=== PATIENT | female | born 1950 | race Caucasian/White ===

== ENCOUNTER → 2017-01-17 | Outpatient (CLI) | payer OTHER ==
[~2017-01-17] MED LIST: ANTIVERT25 M1 PO; ASPIR 8181 MG PO; ATROVASTATIN PO; COUMADIN 5 MG TA5 M1 PO; ESTRACE1 MG PO; FISH OIL 500 M1 EACH PO; GLUCOSAMINE HC500 MG PO; IBUPROFEN 200200 M1 PO; LEVOTHYROXIN0.075 MG PO; LISINOPRIL10 MG PO; LISINOPRIL5 MG PO; MULTIVITAMINS PO; OMEGA-3 + VITA1 EAC2 PO; PERCOCET 10-321 EACH PO; PERCOCET PO; SEE INSTRUCTIONS; VALIUM2 MG PO; VITAMIN D400 UNI1 PO
== END ==
LOC: RAD 07:10
DX: Z12.31 Encounter for screening mammogram for malignant neoplasm of breast (principal); Z78.0 Asymptomatic menopausal state

== ENCOUNTER → 2018-02-04 | Outpatient (CLI) | payer OTHER | LOC: RAD 03:18 | DX: Z12.31 Encounter for screening mammogram for malignant neoplasm of breast (principal) ==

== ENCOUNTER → 2018-06-04 | Outpatient (CLI) | payer OTHER ==
[~2018-06-04] VITALS: Ht 165.1 cm; Wt 82.5 kg
[2018-06-04 09:45] VITALS: BP 120/72
== END ==
LOC: SEN 08:33
DX: E78.5 Hyperlipidemia, unspecified (principal); E03.9 Hypothyroidism, unspecified; H93.19 Tinnitus, unspecified ear; M19.90 Unspecified osteoarthritis, unspecified site; I10 Essential (primary) hypertension; K21.9 Gastro-esophageal reflux disease without esophagitis; Z68.30 Body mass index [BMI] 30.0-30.9, adult; Z79.899 Other long term (current) drug therapy; Z90.710 Acquired absence of both cervix and uterus

== ENCOUNTER → 2018-06-05 | Outpatient (CLI) | payer OTHER ==
[2018-06-05 08:53] LABS: CHOLESTEROL 245 mg/dL (<200); HDL CHOLESTEROL 56 mg/dL (>40); LDL CHOLESTEROL 156 mg/dL (<100); TC:HDL 4.4 Ratio (Not establshd); TRIGLYCERIDE 168 mg/dL (<150); VLDL 34 mg/dL (<40)
== END ==
LOC: SEN 08:15
PROVIDERS: Nurse Practitioner Family
DX: E03.9 Hypothyroidism, unspecified (principal); R53.83 Other fatigue; R63.5 Abnormal weight gain; R79.89 Other specified abnormal findings of blood chemistry

== ENCOUNTER → 2018-06-18 | Outpatient (CLI) | payer OTHER ==
[2018-06-18 10:36] VITALS: BP 122/66
[2018-06-18 12:26] LABS: ABSOLUTE NEUTROPHILS 1.4 thou/uL (1.4-8.2); BASOPHILS 1.6 % (0.0-2.0); EOSINOPHILS 3.4 % (0.0-3.0); HEMATOCRIT 40.4 % (37.0-47.0); HEMOGLOBIN 14.2 gm/dL (12.0-15.0); LYMPHOCYTES 43.8 % (24.0-44.0); MCH 31.5 pg (26.0-34.0); MCHC 35.1 g/dL (28.0-37.0); MCV 89.7 fL (80.0-100.0); MONOCYTES 8.2 % (1.0-8.0); PLATELET COUNT 262 thou/uL (150-400); RBC 4.51 mil/uL (4.20-5.00); RDW 12.5 % (10.5-14.5); WBC 3.3 thou/uL (4.0-11.0)
[2018-06-18 12:43] LABS: ALBUMIN 3.8 g/dL (3.4-5.0); CREATININE 0.8 mg/dL (0.6-1.0); POTASSIUM 3.6 mmol/L (3.5-5.1); TOTAL BILIRUBIN 0.7 mg/dL (<0.1-1.0); TOTAL PROTEIN 7.3 g/dL (6.4-8.2)
[2018-06-18 20:09] LABS: ESTIMATED AVERAGE GLUCOSE 108 mg/dL (()); GLYCOHEMOGLOBIN (HGB A1C) 5.4 % (4.8-5.6); LUTEINIZING HORMONE (LH) 15.6 mIU/mL (()); PROLACTIN 5.3 ng/mL (4.8-23.3); TESTOSTERONE* < 3 ng/dL (3-41)
== END ==
LOC: SEN 08:22
PROVIDERS: Nurse Practitioner Family
DX: E78.5 Hyperlipidemia, unspecified (principal); E03.9 Hypothyroidism, unspecified; E66.9 Obesity, unspecified; R41.3 Other amnesia; G47.9 Sleep disorder, unspecified; N95.1 Menopausal and female climacteric states; I10 Essential (primary) hypertension; M19.90 Unspecified osteoarthritis, unspecified site; K21.9 Gastro-esophageal reflux disease without esophagitis; Z86.39 Personal history of other endocrine, nutritional and metabolic disease

== ENCOUNTER → 2018-07-25 | Outpatient (CLI) | payer OTHER ==
[2018-07-25 10:00] VITALS: BP 146/82
== END ==
LOC: SEN 09:52
DX: E03.9 Hypothyroidism, unspecified (principal); Z68.30 Body mass index [BMI] 30.0-30.9, adult

== ENCOUNTER 2018-10-30 18:06 | Emergency (ER) | payer OTHER ==
[~2018-10-30] VITALS: Ht 167.6 cm; Wt 81.7 kg
[2018-10-30] MEDS ORDERED: HYDROCODONE-AP1 EAC6 PO (21:11)
[2018-10-30 21:21] VITALS: BP 134/79
== END 2018-10-30 21:21 | disposition home or self-care (01) ==
LOC: ER 18:06
DX: S01.111A Laceration without foreign body of right eyelid and periocular area, initial encounter (principal); S02.31XA Fracture of orbital floor, right side, initial encounter for closed fracture; M19.90 Unspecified osteoarthritis, unspecified site; I10 Essential (primary) hypertension; K21.9 Gastro-esophageal reflux disease without esophagitis; Z96.611 Presence of right artificial shoulder joint; Z96.653 Presence of artificial knee joint, bilateral; W17.89XA Other fall from one level to another, initial encounter; Y93.89 Activity, other specified; Y92.89 Other specified places as the place of occurrence of the external cause; Y99.8 Other external cause status

== ENCOUNTER → 2018-12-09 | Outpatient (CLI) | payer OTHER ==
[~2018-12-09] MED LIST changes: +HYDROCODONE-AP1 EAC6 PO
== END ==
LOC: SEN 09:09 → RAD 13:39 → SEN 13:39
DX: M47.812 Spondylosis without myelopathy or radiculopathy, cervical region (principal); M48.02 Spinal stenosis, cervical region; R29.6 Repeated falls; E03.9 Hypothyroidism, unspecified; Z87.820 Personal history of traumatic brain injury; Z87.81 Personal history of (healed) traumatic fracture

== ENCOUNTER → 2019-05-18 | Outpatient (CLI) | payer OTHER ==
[~2019-05-18] MED LIST changes: +AMOXICILLIN 50500 MG PO; +IBUPROFEN 600600 M1 PO; +PENICILLIN V P500 MG PO
== END ==
LOC: BC 12:52
DX: Z12.31 Encounter for screening mammogram for malignant neoplasm of breast (principal)

== ENCOUNTER 2019-06-16 12:46 | Emergency (ER) | payer OTHER ==
[~2019-06-16] VITALS: Ht 167.6 cm; Wt 79.4 kg
[~2019-06-16 12:46] MED LIST changes: -PENICILLIN V P500 MG PO
[2019-06-16] MEDS ORDERED: PENICILLIN V P500 MG PO (15:26)
[2019-06-16 15:54] VITALS: BP 164/82
== END 2019-06-16 16:08 | disposition home or self-care (01) ==
LOC: ER 12:46
DX: S01.511A Laceration without foreign body of lip, initial encounter (principal); S01.112A Laceration without foreign body of left eyelid and periocular area, initial encounter; S63.632A Sprain of interphalangeal joint of right middle finger, initial encounter; M19.90 Unspecified osteoarthritis, unspecified site; I10 Essential (primary) hypertension; K21.9 Gastro-esophageal reflux disease without esophagitis; Z96.653 Presence of artificial knee joint, bilateral; Z98.890 Other specified postprocedural states; Z96.611 Presence of right artificial shoulder joint; W18.39XA Other fall on same level, initial encounter; Y92.89 Other specified places as the place of occurrence of the external cause; Y93.89 Activity, other specified; Y99.8 Other external cause status

== ENCOUNTER 2019-07-20 13:09 | Emergency (ER) | payer OTHER ==
[~2019-07-20] VITALS: Ht 167.6 cm; Wt 79.4 kg
[~2019-07-20 13:09] MED LIST changes: +PENICILLIN V P500 MG PO
[2019-07-20 16:00] VITALS: BP 171/87
== END 2019-07-20 16:41 | disposition home or self-care (01) ==
LOC: ER 13:09
DX: S01.81XA Laceration without foreign body of other part of head, initial encounter (principal); I10 Essential (primary) hypertension; K21.9 Gastro-esophageal reflux disease without esophagitis; M19.90 Unspecified osteoarthritis, unspecified site; Z98.890 Other specified postprocedural states; Z90.710 Acquired absence of both cervix and uterus; Z96.653 Presence of artificial knee joint, bilateral; Z96.612 Presence of left artificial shoulder joint; Z96.611 Presence of right artificial shoulder joint; W01.198A Fall on same level from slipping, tripping and stumbling with subsequent striking against other object, initial encounter; Y93.89 Activity, other specified; Y92.89 Other specified places as the place of occurrence of the external cause; Y99.9 Unspecified external cause status

== ENCOUNTER → 2019-09-11 | Outpatient (CLI) | payer OTHER ==
[2019-09-11 09:06] LABS: CREATININE 0.7 mg/dL (0.6-1.0)
== END ==
LOC: MRI 08:27 → EDSTATUS 12:29 → MRI 12:32
PROVIDERS: Psychiatry & Neurology Neuromuscular Medicine
DX: S13.170A Subluxation of C6/C7 cervical vertebrae, initial encounter (principal); M50.221 Other cervical disc displacement at C4-C5 level; M47.812 Spondylosis without myelopathy or radiculopathy, cervical region; M48.02 Spinal stenosis, cervical region; M12.88 Other specific arthropathies, not elsewhere classified, other specified site; R29.2 Abnormal reflex; R20.0 Anesthesia of skin; Z87.820 Personal history of traumatic brain injury; W19.XXXA Unspecified fall, initial encounter; Y93.89 Activity, other specified; Y92.89 Other specified places as the place of occurrence of the external cause; Y99.8 Other external cause status

== ENCOUNTER 2019-10-14 14:44 | Emergency (ER) | payer OTHER ==
[~2019-10-14] VITALS: Ht 167.6 cm; Wt 79.4 kg
[2019-10-14 17:05] VITALS: BP 128/63
== END 2019-10-14 17:05 | disposition home or self-care (01) ==
LOC: ER 14:44
DX: S01.81XA Laceration without foreign body of other part of head, initial encounter (principal); M25.561 Pain in right knee; I10 Essential (primary) hypertension; K21.9 Gastro-esophageal reflux disease without esophagitis; M19.90 Unspecified osteoarthritis, unspecified site; Z90.710 Acquired absence of both cervix and uterus; Z96.653 Presence of artificial knee joint, bilateral; Z96.611 Presence of right artificial shoulder joint; Z96.612 Presence of left artificial shoulder joint; W01.0XXA Fall on same level from slipping, tripping and stumbling without subsequent striking against object, initial encounter; Y93.89 Activity, other specified; Y92.89 Other specified places as the place of occurrence of the external cause; Y99.8 Other external cause status

== ENCOUNTER → 2020-07-12 | Outpatient (CLI) | payer OTHER | LOC: BC 09:30 | PROVIDERS: ATTEND Family Medicine | DX: Z12.31 Encounter for screening mammogram for malignant neoplasm of breast (principal) ==

== ENCOUNTER → 2020-11-28 | Outpatient (CLI) | payer OTHER ==
[~2020-11-28] MED LIST changes: +ASA81BEC PO; +VITAMIN B12-FO1 EAC1 PO
== END ==
LOC: LAB 10:27
PROVIDERS: ATTEND Orthopaedic Surgery Hand Surgery
DX: Z01.812 Encounter for preprocedural laboratory examination (principal); Z20.822 Contact with and (suspected) exposure to COVID-19

== ENCOUNTER → 2020-12-01 | Day surgery (SDC) | payer OTHER ==
[~2020-12-01] VITALS: Ht 167.6 cm; Wt 79.4 kg
[2020-12-01 14:30] VITALS: BP 168/89
[2020-12-01 18:02] VITALS: BP 168/89
--- NOTE | 2020-12-23 13:02 | O ---
[facility] [place] [address] [address] [place] [address] OPERATIVE REPORT Name: JODY HERNANDEZ Room #: REG [facility]..#: [id number] Admission: 12/01/20 Attend Phys: Joanna Mccall, Discharge: Date of : 48 Report #: [id number] THIS REPORT FOR: cc: Jaguar Mcdonough MD, Neal A. MD Deardorff,Joanna Reynoso MD ~ DATE OF SERVICE: 12/01/2020 PREOPERATIVE DIAGNOSIS: Left carpal tunnel syndrome. POSTOPERATIVE DIAGNOSIS: Left carpal tunnel syndrome. PROCEDURE PERFORMED: Left endoscopic carpal tunnel release. SURGEON: Joanna Mccall MD ANESTHESIA: General mask anesthesia. ESTIMATED BLOOD LOSS: Minimal. TOURNIQUET TIME: 11 minutes. COMPLICATIONS: None. CONDITION: Stable. DISPOSITION: Recovery room. INDICATIONS: The patient is a 70-year-old female with the above-mentioned diagnosis. She elects for operative treatment. The risks, benefits, alternatives and complications were discussed including but not limited to infection, damage to vessels or nerves, incomplete relief or worsening of any symptoms. Informed consent was obtained. The correct extremity was identified and labeled by myself after verbal confirmation of the patient as well as visual confirmation and signed informed consent. We also discussed possible trigger finger. She did not have any significant tenderness. There were only 1-2 episodes of clicking and she reports very few episodes. She elected to observe this. We discussed the diagnosis as well as treatment options. DESCRIPTION OF PROCEDURE: The patient was brought back to the OR and placed in a supine position. She received preoperative antibiotics. Tourniquet was placed over padding on the patient's left lower extremity was sterilely prepped and draped in the usual fashion. Final timeout was taken to verify correct patient, operative procedure, operative site, all concurred. The arm was elevated, exsanguinated and tourniquet inflated. The entire procedure was done [address] [address] OPERATIVE REPORT Name: JODY HERNANDEZ Room #: REG [facility]..#: [id number] Admission: 12/01/20 Attend Phys: Joanna Mccall, Discharge: Date of : 48 Report #: [id number] with aid of 3.5 times loupe modification. Next, a transverse incision was made a few millimeters proximal to distal wrist crease in line with ulnar border of the palmaris longus tendon. Dissection was carried down through subcutaneous tissue with tenotomy scissors. Antebrachial fascia was identified and incised. It was then incised for a few millimeters proximal. Next, an oblique incision was made. The distal end of the carpal tunnel, the fat was elevated off the fascia. The fascia was carefully incised. Next, a Crane elevator was placed through the carpal tunnel and any synovial tissue was elevated off the undersurface of the transverse carpal ligament. Next, a blunt trocar and cannula was inserted with the wrist in maximal extension and digital pressure distally. The blunt trocar was removed. The camera was inserted and the nice transverse fibers of the undersurface of the transverse carpal ligament were identified. A hook blade was brought in distally and the transverse carpal ligament transected distally. Next, a camera was inserted distally and transverse carpal ligament transected proximally. Next, a camera and cannula were withdrawn and visualized the cut ends of the transverse carpal ligament. Next, each wound was explored. The release was all away from the antebrachial fascia in the forearm all the way through the fat in the palm. The nerve looked to be in excellent condition. The wounds were thoroughly irrigated. Skin was closed with 4-0 nylon suture. Wound was dressed with Adaptic and sterile gauze. She was placed in a bulky dressing after infiltrating subcutaneous tissue with approximately 5 mL of 0.25% Marcaine. All fingers were pink with brisk capillary refill at the conclusion of case after deflation of tourniquet. All sponge and needle counts were correct. The patient was transferred to postoperative recovery room in stable condition. <ELECTRONICALLY SIGNED> By: Joanna Mccall MD 12/23/20 1302 1755 1816 Joanna Mccall MD /nt
== END | disposition home or self-care (01) ==
LOC: OR 09:16 → EDSTATUS 11:26 → OR 11:27 → PRE 12:17 → OR 13:31 → EDSTATUS 14:12 → PRE 14:28
PROVIDERS: ATTEND Orthopaedic Surgery Hand Surgery
DX: G56.02 Carpal tunnel syndrome, left upper limb (principal); I10 Essential (primary) hypertension; K21.9 Gastro-esophageal reflux disease without esophagitis; E78.5 Hyperlipidemia, unspecified; E03.9 Hypothyroidism, unspecified; M19.90 Unspecified osteoarthritis, unspecified site; Z98.890 Other specified postprocedural states; Z79.899 Other long term (current) drug therapy; Z90.710 Acquired absence of both cervix and uterus; Z96.653 Presence of artificial knee joint, bilateral; Z96.611 Presence of right artificial shoulder joint; Z96.612 Presence of left artificial shoulder joint
CPT/HCPCS: 50010; 50101; 50386; 56526; 56969; 57006; 57091; 57178; 62110; 62900; 70005

== ENCOUNTER → 2021-02-07 | Outpatient (CLI) | payer OTHER ==
[~2021-02-07] VITALS: Ht 167.6 cm; Wt 77.1 kg
[~2021-02-07] MED LIST changes: +CEROVITE SENIO1 EACH PO; -LEVOTHYROXIN0.075 MG PO; +LEVOTHYROXINE75 MC1 PO; -MULTIVITAMINS PO; +TYLENOL EXTRA500 MG PO
--- NOTE | 2021-02-09 18:06 | PATH ---
[facility] [address] [place] [address] PATHOLOGY RPT PROCEDURE Name: JODY PATEL Room #: REG [facility].#: [id number] Admission: 02/07/21 Date of : 48 Discharge: Report #: [id number] Path Case #: [id number] [facility] Accession Number: [id number] . 01 Material submitted: . colon - ASCENDING COLON POLYP BX. Modifiers: ascending . 01 Clinical history: . COLONOSCOPY FAMILY HISTORY COLON CX COLON POLYPS, INTERNAL HEMMORHOIDS . 02 Diagnosis: Polyp, ascending colon polyp, endoscopic biopsy: - Tubular adenoma. - Negative for high grade dysplasia. . (IUV:mml; 02/09/2021) QLM 02/09/2021 1319 Local . 02 Electronically signed: . Allie Knutson MD, Pathologist NPI- [id number] . 01 Gross description: . Received in formalin labeled "Jody Patel, ascending colon polyp biopsy x2" are multiple lipscomb-brown soft tissue fragments measuring in aggregate 1.2 x 0.7 x 0.3 cm. The specimen is submitted entirely in A1. ([facility]; 02/08/2021) . GZA/GZA 02/08/2021 1641 Local . 02 Pathologist provided ICD-10: D12.2 . 02 CPT . 353762 Specimen Comment: A courtesy copy of this report has been sent to [phone] Specimen Comment: [phone] Specimen Comment: Report sent to / DR FATIMA Performed at: [address] [id number] MD Nba Garcia MD Phone: [phone] Performed at: 02 [facility] [address] [place] [address] PATHOLOGY RPT PROCEDURE Name: OJDY PATEL Room #: REG CLI Felipe#: [id number] Admission: 02/07/21 Date of : 48 Discharge: Report #: [id number] Path Case #: [id number] [address] [place] [id number] MD Allie Knutson MD Phone: [phone]
== END | disposition home or self-care (01) ==
LOC: GI 07:17
PROVIDERS: ATTEND Internal Medicine Gastroenterology
DX: Z12.11 Encounter for screening for malignant neoplasm of colon (principal); Z86.010 Personal history of colon polyps; Z80.0 Family history of malignant neoplasm of digestive organs; D12.2 Benign neoplasm of ascending colon; K64.8 Other hemorrhoids; E03.9 Hypothyroidism, unspecified; M19.90 Unspecified osteoarthritis, unspecified site; Z98.890 Other specified postprocedural states; Z79.899 Other long term (current) drug therapy; Z96.653 Presence of artificial knee joint, bilateral; Z96.611 Presence of right artificial shoulder joint; Z96.612 Presence of left artificial shoulder joint; Z90.710 Acquired absence of both cervix and uterus
CPT/HCPCS: 62110; 62900